=== PATIENT | female | born 1950 | race African-American/Black ===

== ENCOUNTER 2018-03-20 17:06 | Emergency (ER) | payer MEDICARE ==
[~2018-03-20] VITALS: Ht 170.2 cm; Wt 95.0 kg
[~2018-03-20 17:06] MED LIST: ACCOLATE20 MG; ACYCLOVIR400 MG PO; ALLEGRA-D 1212 HOUR PO; ALLEGRA-D 2424 HOUR PO; AMANTADINE100 MG PO; AMLODIPINE BESY10 MG PO; AMOXICILLIN/CL875 MG PO; ANTI-DIARRHE2 M1 PO; ASPIRIN EC81 MG PO; AUGMENTIN500TAB PO; AUGMENTIN875TAB PO; BENICAR40 MG PO; BENZONATATE200 MG PO; CHERATUSSIN PO; CIPROFLOXACN500 MG PO; CLONIDINE0.1 MG PO; CRESTOR20 MG PO; DELSYM30 MG/5 ML PO; DIFLUCAN150 MG PO; DILAUDID2 MG PO; DOXYCYC MONO100 M2 PO; FLEXERIL PO; FLEXERIL10 MG PO; FLORASTOR250 M1 PO; FLUTICASONE50 MCG; HYDROCHLOROT12.5 MG PO; KETOROLAC60 MG/2 ML IM; LIPITOR40 MG PO; LISINOP/HCTZ1 TA2 PO; LISINOPRIL20 MG PO; LORTAB 5 PO; LORTAB 5/3255 MG PO; MEDDOSEPAK PO; MELOXICAM15 MG PO; MELOXICAM7.5 MG PO; METOPROL TAR25 MG PO; METOPROLOL50 M1 PO; METRONIDAZOL250 MG PO; MOBIC15 M1 PO; MOBIC15 MG PO; MOTRIN800 MG PO; MUCINEX600 MG PO; NAPROSYN375 MG PO; NAPROSYN500 MG PO; NEXIUM40 M1 PO; NEXIUM40 MG PO; NORCO1 TA1 PO; NYSTATIN100000 M3 TOP; OMEGA 31000 MG PO; PERCOCET 5/325M1 TAB PO; PRAVACHOL40 MG PO; PRAVASTATIN40 MG PO; PREDNISONE20 MG PO; PROAIR HFA IN; QVAR80 MCG IN; ROBITUSSIN AC10 ML PO; SYMBICORT 80-4.5MCG; SYMBICORT 80-4.5MCG IN; SYMBICORT1 AE1 IN; TESSALON PER100 MG PO; TESSALON200 MG PO; TRAMADOL HCL50 MG PO; ULTRAM ER100 MG PO; VICODIN1 TAB PO; ZITHROMAX250 MG PO; ZITHROMAX500 MG PO; ZOFRAN4 MG/TAB PO; ZPAK PO; ZYRTEC10 MG PO; [UNRECOGNIZED DRUG - OTHER] PO; [UNRECOGNIZED DRUG - OTHER] VA
[2018-03-20] MEDS ORDERED: KEFLEX500 M1 PO (18:05)
[2018-03-20 18:08] VITALS: BP 143/81
== END 2018-03-20 18:16 | disposition home or self-care (01) ==
LOC: ED 17:06
PROC: 0HQDXZZ Repair Right Lower Arm Skin, External Approach (ICD-10-PCS; principal; 2018-03-20)
DX: S51.811A Laceration without foreign body of right forearm, initial encounter (principal); E11.9 Type 2 diabetes mellitus without complications; I10 Essential (primary) hypertension; K21.9 Gastro-esophageal reflux disease without esophagitis; E78.00 Pure hypercholesterolemia, unspecified; W22.8XXA Striking against or struck by other objects, initial encounter

== ENCOUNTER 2018-03-25 10:57 | Emergency (ER) | payer MEDICARE ==
[~2018-03-25] VITALS: Ht 170.2 cm; Wt 94.5 kg
[~2018-03-25 10:57] MED LIST changes: +KEFLEX500 M1 PO
[2018-03-25] MEDS ORDERED: DIFLUCAN100 MG PO (11:20)
[2018-03-25 11:25] VITALS: BP 151/69
== END 2018-03-25 11:30 | disposition home or self-care (01) ==
LOC: ED 10:57
DX: S51.801D Unspecified open wound of right forearm, subsequent encounter (principal); B37.3 Candidiasis of vulva and vagina; E11.9 Type 2 diabetes mellitus without complications; I10 Essential (primary) hypertension; J44.9 Chronic obstructive pulmonary disease, unspecified; K21.9 Gastro-esophageal reflux disease without esophagitis; X58.XXXD Exposure to other specified factors, subsequent encounter

== ENCOUNTER 2018-07-14 02:08 | Emergency (ER) | payer MEDICARE ==
[~2018-07-14] VITALS: Ht 170.2 cm; Wt 95.4 kg
[~2018-07-14 02:08] MED LIST changes: +DIFLUCAN100 MG PO
[2018-07-14 03:06] LABS: HEMATOCRIT 38.5 % (37.0-47.0); HEMOGLOBIN 11.6 g/dl (12.0-16.0); IMMATURE GRANULOCYTES 0.3 % (0.0-5.0); MEAN CELL VOLUME 81.2 fL CALC (80.0-100.0); MEAN CORPUSCULAR HGB 24.5 pG CALC (26.0-32.0); MEAN CORPUSCULAR HGB CONC 30.1 g/L CALC (32.0-36.0); NEUT# 4.41 thou/uL (2.00-7.15); RED BLOOD COUNT 4.74 mill/uL (4.20-5.60); RED CELL DISTRI WIDTH 16.1 % (11.5-15.5)
[2018-07-14 03:18] LABS: CREATININE 1.3 mg/dL (0.5-1.0); POTASSIUM 3.9 mmol/l (3.5-5.1)
[2018-07-14] MEDS ORDERED: PERCOCET 10/31 COMBO PO (03:32)
[2018-07-14] MEDS ORDERED: VOLTAREN75 MG PO (03:32)
[2018-07-14 03:44] VITALS: BP 141/52
== END 2018-07-14 03:44 | disposition home or self-care (01) ==
LOC: ED 02:08
PROVIDERS: Family Medicine
DX: M25.562 Pain in left knee (principal); I10 Essential (primary) hypertension; E11.9 Type 2 diabetes mellitus without complications; J44.9 Chronic obstructive pulmonary disease, unspecified; K21.9 Gastro-esophageal reflux disease without esophagitis; E78.00 Pure hypercholesterolemia, unspecified; Z96.652 Presence of left artificial knee joint

== ENCOUNTER 2018-09-17 08:46 | Day surgery (SDC) | payer MEDICARE ==
[~2018-09-17 08:46] MED LIST changes: +ATENOLOL25 MG PO; +HYDRALAZINE25 MG PO; +LOSARTAN/HCT1 TA1 PO; +PERCOCET 10/31 COMBO PO; +VOLTAREN75 MG PO
[2018-09-17] MEDS ORDERED: DILAUDID4 MG PO (12:27)
[2018-09-17 13:06] VITALS: BP 177/68
[2018-09-17] MEDS ORDERED: OXYCODONE10 M1 PO (13:10)
== END 2018-09-17 14:12 | disposition home or self-care (01) ==
LOC: ORM 08:46
PROVIDERS: ATTEND Orthopaedic Surgery
PROC: 0SNDXZZ Release Left Knee Joint, External Approach (ICD-10-PCS; principal; 2018-09-17)
DX: T84.89XA Other specified complication of internal orthopedic prosthetic devices, implants and grafts, initial encounter (principal); M25.662 Stiffness of left knee, not elsewhere classified; I10 Essential (primary) hypertension; Y83.1 Surgical operation with implant of artificial internal device as the cause of abnormal reaction of the patient, or of later complication, without mention of misadventure at the time of the procedure; Z96.652 Presence of left artificial knee joint; Z91.19 Patient's noncompliance with other medical treatment and regimen

== ENCOUNTER 2018-12-21 07:36 | Emergency (ER) | payer MEDICARE ==
[~2018-12-21] VITALS: Ht 170.2 cm; Wt 97.7 kg
[~2018-12-21 07:36] MED LIST changes: +DILAUDID4 MG PO; +OXYCODONE10 M1 PO
[2018-12-21] MEDS ORDERED: HYZAAR1 TA1 PO (08:11)
[2018-12-21] MEDS ORDERED: VOLTAREN1%GEL TOP (09:05)
[2018-12-21] MEDS ORDERED: CYCLOBENZAPR5 MG PO (09:05)
[2018-12-21 09:32] VITALS: BP 198/88
== END 2018-12-21 09:32 | disposition home or self-care (01) ==
LOC: ED 07:36
DX: S39.012A Strain of muscle, fascia and tendon of lower back, initial encounter (principal); E11.9 Type 2 diabetes mellitus without complications; I10 Essential (primary) hypertension; J44.9 Chronic obstructive pulmonary disease, unspecified; X58.XXXA Exposure to other specified factors, initial encounter

== ENCOUNTER 2019-01-21 04:30 | Observation (INO) | payer MEDICARE ==
[~2019-01-21] VITALS: Ht 170.2 cm; Wt 102.1 kg
[~2019-01-21 04:30] MED LIST changes: +CYCLOBENZAPR5 MG PO; +HYZAAR1 TA1 PO; +VOLTAREN1%GEL TOP
[2019-01-21] MEDS ORDERED: TIZANIDINE HCL4 M1 PO (04:55)
[2019-01-21] MEDS ORDERED: SYMBICORT1 AE1 IN (04:57)
[2019-01-21] MEDS ORDERED: LOSARTAN/HCT1 TA2 PO (04:57)
[2019-01-21 06:39] LABS: HEMATOCRIT 38.5 % (37.0-47.0); HEMOGLOBIN 11.8 g/dl (12.0-16.0); IMMATURE GRANULOCYTES 0.5 % (0.0-5.0); MEAN CELL VOLUME 80.5 fL CALC (80.0-100.0); MEAN CORPUSCULAR HGB 24.7 pG CALC (26.0-32.0); MEAN CORPUSCULAR HGB CONC 30.6 g/L CALC (32.0-36.0); NEUT# 5.4 thou/uL (2.00-7.15); RED BLOOD COUNT 4.78 mill/uL (4.20-5.60); RED CELL DISTRI WIDTH 15.9 % (11.5-15.5)
[2019-01-21 06:50] LABS: ALBUMIN 4.2 g/dL (3.2-5.0); ALKALINE PHOSPHATASE 83 u/l (38-126); AMYLASE 67 u/l (30-110); ANION GAP 13 (6-22 (CALC)); BILIRUBIN, TOTAL 0.3 mg/dL (0.0-1.4); BUN 23 mg/dL (8-23); BUN/CREATININE RATIO 25 (12-20 (CALC)); CARBON DIOXIDE 29 mmol/l (22-30); CHLORIDE 106 mmol/l (95-108); CREATININE 0.9 mg/dL (0.5-1.0); GFR > 60 ML/MIN (>=60 (CALC)); GFR FOR AFR.AMER. > 60 ML/MIN (>=60 (CALC)); LIPASE 32 u/l (23-300); POTASSIUM 3.7 mmol/l (3.5-5.1); SGOT/AST 29 u/l (9-36); SODIUM 143 mmol/l (137-146); TOTAL PROTEIN 7.6 g/dL (6.3-8.2)
[2019-01-21 07:02] LABS: MYOGLOBIN 71 ng/mL (0 - 62)
[2019-01-21 07:47] LABS: URINE BILIRUBIN - DIPSTICK NEGATIVE (NEGATIVE); URINE BLOOD DIPSTICK NEGATIVE (NEGATIVE); URINE COLOR YELLOW; URINE GLUCOSE - DIPSTICK NEGATIVE (NEGATIVE); URINE KETONE NEGATIVE (NEGATIVE); URINE LEUK ESTERASE NEGATIVE (NEGATIVE); URINE NITRITE - DIPSTICK NEGATIVE (Negative); URINE PROTEIN - DIPSTICK NEGATIVE (NEG-TRACE); URINE SPECIFIC GRAVITY 1.025; URINE UROBILINOGEN - DIPSTICK 0.2 E.U./dL (0.2)
[2019-01-21 10:42] VITALS: BP 156/59
[2019-01-21 15:36] VITALS: BP 123/58
[2019-01-21 19:38] VITALS: BP 134/60
[2019-01-22] VITALS: BP 170/81
[2019-01-22 00:50] VITALS: BP 162/80
[2019-01-22 01:40] VITALS: BP 158/76
[2019-01-22 04:00] VITALS: BP 131/70
[2019-01-22 06:04] LABS: CHOLESTEROL HDL RATIO 5.1 (<4.4 (CALC))
[2019-01-22 08:25] VITALS: BP 178/67
[2019-01-22 09:36] VITALS: BP 178/67
[2019-01-22] MEDS ORDERED: MEDDOSEPAK PO (10:32)
[2019-01-22] MEDS ORDERED: ZITHROMAX250 MG PO (10:32)
[2019-01-22] MEDS ORDERED: DIFLUCAN150 MG PO (10:32)
[2019-01-22] MEDS ORDERED: ROBITUSSIN AC10 ML PO (10:36)
== END 2019-01-22 14:23 | disposition home or self-care (01) ==
LOC: ED 04:30 → ED-I 08:19 → ED 08:54 → MS2 08:55
PROVIDERS: Emergency Medicine; ADMIT Internal Medicine; ATTEND Internal Medicine
DX: R07.89 Other chest pain (principal); J20.9 Acute bronchitis, unspecified; J44.0 Chronic obstructive pulmonary disease with (acute) lower respiratory infection; I10 Essential (primary) hypertension; K21.9 Gastro-esophageal reflux disease without esophagitis; E78.00 Pure hypercholesterolemia, unspecified

== ENCOUNTER 2019-05-02 17:53 | Emergency (ER) | payer MEDICARE ==
[~2019-05-02] VITALS: Ht 170.2 cm; Wt 100.0 kg
[~2019-05-02 17:53] MED LIST changes: +LOSARTAN/HCT1 TA2 PO; +TIZANIDINE HCL4 M1 PO
[2019-05-02 19:09] LABS: HEMATOCRIT 37.7 % (37.0-47.0); HEMOGLOBIN 11.4 g/dl (12.0-16.0); IMMATURE GRANULOCYTES 0.3 % (0.0-5.0); MEAN CORPUSCULAR HGB 24.8 pG CALC (26.0-32.0); MEAN CORPUSCULAR HGB CONC 30.2 g/L CALC (32.0-36.0); NEUT# 4.55 thou/uL (2.00-7.15); RED BLOOD COUNT 4.6 mill/uL (4.20-5.60)
[2019-05-02 19:20] LABS: ALBUMIN 4.2 g/dL (3.2-5.0); BILIRUBIN, TOTAL 0.2 mg/dL (0.0-1.4); CREATININE 1.1 mg/dL (0.5-1.0); POTASSIUM 3.7 mmol/l (3.5-5.1); TOTAL PROTEIN 7.5 g/dL (6.3-8.2)
[2019-05-02 21:06] LABS: URINE BILIRUBIN - DIPSTICK NEGATIVE (NEGATIVE); URINE BLOOD DIPSTICK NEGATIVE (NEGATIVE); URINE COLOR YELLOW; URINE GLUCOSE - DIPSTICK NEGATIVE (NEGATIVE); URINE KETONE NEGATIVE (NEGATIVE); URINE LEUK ESTERASE NEGATIVE (NEGATIVE); URINE NITRITE - DIPSTICK NEGATIVE (Negative); URINE PROTEIN - DIPSTICK NEGATIVE (NEG-TRACE); URINE SPECIFIC GRAVITY 1.025; URINE UROBILINOGEN - DIPSTICK 0.2 E.U./dL (0.2)
[2019-05-02] MEDS ORDERED: PHENERGAN25 MG/TAB PO (21:13)
[2019-05-02] MEDS ORDERED: TORADOL PO (21:13)
[2019-05-02 21:18] VITALS: BP 135/77
== END 2019-05-02 21:29 | disposition home or self-care (01) ==
LOC: ED 17:53
PROVIDERS: Family Medicine
DX: M54.5 Low back pain (principal); A08.4 Viral intestinal infection, unspecified; I10 Essential (primary) hypertension; J44.9 Chronic obstructive pulmonary disease, unspecified; E11.9 Type 2 diabetes mellitus without complications

== ENCOUNTER 2019-05-08 20:52 | Emergency (ER) | payer MEDICARE ==
[~2019-05-08] VITALS: Ht 170.2 cm; Wt 101.3 kg
[~2019-05-08 20:52] MED LIST changes: +PHENERGAN25 MG/TAB PO; +TORADOL PO
[2019-05-08] MEDS ORDERED: FLUOXETINE10 MG PO (21:51)
[2019-05-08] MEDS ORDERED: NEXIUM40 M1 PO (21:52)
[2019-05-08] MEDS ORDERED: FLEXERIL PO (23:10)
[2019-05-08] MEDS ORDERED: ULTRAM50 M1 PO (23:10)
[2019-05-08 23:19] VITALS: BP 155/72
== END 2019-05-08 23:19 | disposition home or self-care (01) ==
LOC: ED 20:52
DX: M54.5 Low back pain (principal); G89.29 Other chronic pain

== ENCOUNTER 2019-07-03 | Emergency (ER) | payer MEDICARE ==
[~2019-07-03] MED LIST changes: +FLUOXETINE10 MG PO; +ULTRAM50 M1 PO
[2019-07-03] MEDS ORDERED: ACYCLOVIR200 MG PO (03:15)
[2019-07-03] MEDS ORDERED: DOXYCYC MONO100 M2 PO (03:17)
[2019-07-03] MEDS ORDERED: TESSALON PER100 MG PO (03:17)
[2019-07-15] MEDS ORDERED: PREDNISONE20 MG PO (09:09)
== END 2019-07-03 03:42 | disposition home or self-care (01) ==
DX: J06.9 Acute upper respiratory infection, unspecified (principal); I10 Essential (primary) hypertension

== ENCOUNTER 2019-11-12 21:52 | Observation (INO) | payer MEDICARE, MEDICAID ==
[~2019-11-12] VITALS: Ht 170.2 cm; Wt 107.1 kg
[~2019-11-12 21:52] MED LIST changes: +ACYCLOVIR200 MG PO
--- NOTE | 2019-11-12 21:55 | NUR ---
PATIENT TO ROOM 9 FOR BEDSIDE TRIAGE VIA WHEELCHAIR. ACCOMPANIED BY SPOUSE. AWAITING MD BEARD.
[2019-11-12] MEDS ORDERED: TRELEGY ELLIPTA1 AER IN (22:29)
--- NOTE | 2019-11-12 22:55 | NUR ---
IV STARTED/LABS DRAWN.
[2019-11-12 23:03] LABS: HEMATOCRIT 40.3 % (37.0-47.0); HEMOGLOBIN 12.6 g/dl (12.0-16.0); IMMATURE GRANULOCYTES 0.6 % (0.0-5.0); MEAN CELL VOLUME 79.6 fL CALC (80.0-100.0); MEAN CORPUSCULAR HGB 24.9 pG CALC (26.0-32.0); MEAN CORPUSCULAR HGB CONC 31.3 g/dL CAL (32.0-36.0); NEUT# 9.68 thou/uL (2.00-7.15); RED BLOOD COUNT 5.06 mill/uL (4.20-5.60); RED CELL DISTRI WIDTH 15.6 % (11.5-15.5)
[2019-11-12 23:21] LABS: ALBUMIN 4.4 g/dL (3.2-5.0); ALKALINE PHOSPHATASE 104 u/l (38-126); BUN 32 mg/dL (8-23); BUN/CREATININE RATIO 33 (12-20 (CALC)); CHLORIDE 105 mmol/l (95-108); GFR 55 ML/MIN (>=60 (CALC)); GFR FOR AFR.AMER. > 60 ML/MIN (>=60 (CALC)); POTASSIUM 3.4 mmol/l (3.5-5.1); SGOT/AST 27 u/l (9-36); SODIUM 138 mmol/l (137-146)
[2019-11-12 23:29] LABS: MYOGLOBIN 39 ng/mL (0 - 62)
[2019-11-12 23:30] LABS: ANION GAP 15 (6-22 (CALC)); BILIRUBIN, TOTAL 0.2 mg/dL (0.0-1.4); CARBON DIOXIDE 21 mmol/l (22-30)
[2019-11-12 23:39] LABS: ACT PARTIAL THROMBO TIME 24.2 SECONDS (20.0-32.5)
--- NOTE | 2019-11-13 00:16 | NUR ---
PT RESTING. FEELS BETTER.
--- NOTE | 2019-11-13 00:54 | NUR ---
TO CT VIA W/C.
--- NOTE | 2019-11-13 01:19 | NUR ---
RETURNED FROM CT VIA W/C. ARLYN.
--- NOTE | 2019-11-13 01:25 | NUR ---
UP TO BR TO VOID.
--- NOTE | 2019-11-13 02:12 | NUR ---
CT RESULTED. TO BEDSIDE.
--- NOTE | 2019-11-13 02:33 | NUR ---
REPORT CALLED TO [facility]/ICU (OVERFLOW PT FROM MED-SURG) PT STATES SHE FEELS BETTER BUT STILL FEELS LIKE HEART IS RACING. C.M. NSR. RATE 82
--- NOTE | 2019-11-13 02:40 | NUR ---
TO ICU (MED-SURG OVERFLOW) VIA W/C. SPOUSE HOME. SENT PURSE WITH HIM BUT KEPT WALLET/PHONE/FILTER PULP WASHER/CLOTHERS. ARLYN.
[2019-11-13 02:45] VITALS: BP 140/67
--- NOTE | 2019-11-13 02:45 | NUR ---
RECEIVED [facility] ER VIA INTO ICU 7. PATIENT IS M/S OVERFLOW. PATIENT AMBULATED FROM WC TO BED WITH STABLE STANCE AND GAIT. PLACED ON [employer] CONSULTANT SHOWING SR. RESP NON-LABORED. LUNGS CLEAR. TRACE EDEMA OF BLE. SALINE LOCK INTACT IN LFA, SITE BENIGN. DENIES CHEAT PAINAT THIS TIME. C/O MILD BACK PAIN, STATES SHE SEES A PAIN MANAGEMENT DR IN [place] AND HAD AN EPIDURAL YESTERDAY FOR HER CHRONIC BACK PAIN. ORIENTED TO SURROUNDINGS. DISCUSSED PLAN OF CARE. DENIES NEEDS AT THIS TIME. CALL ARIAS IN REACH.
[2019-11-13 06:00] VITALS: BP 163/69
--- NOTE | 2019-11-13 06:00 | NUR ---
RESTING WITHOUT COMPLAINTS. VSS.
--- NOTE | 2019-11-13 08:00 | NUR ---
PT SEEN AWAKE, ALERT, ORIENTED X 3, PLEASANT. LUNGS CLEAR, RA. PT IS AMBULATORY IN ROOM, UP TO BSC NEEDED. PT STATES THAT SHE FEELS HER HEART BEATING HARDER THAN USUAL, HEARS PULSES IN HER EARS. MONITOR REFLECTS NSR. HEART MURMUR HEARD. PT UPDATED ON TROPONIN RESULTS AND FURTHER DRAWS.
--- NOTE | 2019-11-13 11:39 | NUR ---
PT UPDATED ON TROPONIN RESULT, PLEASED THAT IT IS LOWER. NO COMPLAINT OF CHEST PAIN, ALTHOUGH PT DOES STATE THAT SHE FEELS THE STRONG BEAT OF HER HEART. PT SEEN BY DR GONZALEZ THIS MORNING, TO MONITOR.
--- NOTE | 2019-11-13 16:24 | NUR ---
PT UPDATED ON TROPONIN LEVEL, STILL NOT IN POSITIVE RANGE THANKFULLY. PT IS INDEPENDENT IN GOING BACK AND FORTH TO BSC, DOES NOT CALL OFTEN. PT ENJOYS WORD PUZZLE AT BEDSIDE.
[2019-11-13 19:00] VITALS: BP 156/53
--- NOTE | 2019-11-13 19:15 | NUR ---
PATIENT ALERT AND ORIENTED X4. ON RA, NO SOB NOTED. REPORTS SHE IS "FEELING BETTER," REPORTS WHEN SHE INITIALLY CAME IN SHE WOULD FEEL LIKE HER "HEART RACING" AND "DRUMMING" IN HER EARS FROM HER HEART BEATING. NURSING ASSESSMENT PERFORMED. LFA IV INTACT, 1/2 NS INFUSING AT 20 ML/HR. REQUEST TO WASH UP TONIGHT. ABLE TO GET UP TO BSC WITHOUT DIFFICULTY. SR ON TELEMTRY, SATS 95% ON RA. BP 150'S SYSTOLIC. SELF REPOSITIONS. REPORTS SHE HAS CHRONIC PAIN ON "RIGHT NECK, R-SHOULDER, BACK, BOTH KNEES." WILL FOLLOW UP, PATIENT DOES NOT KNOW WHAT MEDIACTION SHE TAKES FOR PAIN.
--- NOTE | 2019-11-13 20:00 | NUR ---
PATIENT UP TO BSC AND WAS ABLE TO WASH HERSELF WITH MINIMAL ASSIST, BED PAD CHANGED, PAD AND DISPOSABLE NETTED BRIEF PROVIDED. REFUSED TO WASH HER TEETH, REPORTS SHE WILL WASH THEM IN THE AM. PT NOW LAYS SAFELY IN BED AND WORKS ON HER CROSSWORD PUZZLE. PT WAS ABLE TO CALL HER FAMILY TO GIVE HER THE NAME OF THE PAIN MED AND DOSAGE. WILL CALL CORE FINISHER DOCTOR.
--- NOTE | 2019-11-13 20:50 | NUR ---
CALLED AND SPOKE TO DR PANTOJA REGARDING PATIENT REQUESTS FOR HER PAIN MEDIACTION, PT TAKES LORTAB 7.5/325 MG AND SHE ALSO REPORTS SHE TAKES BENADRYL WITH IT SO THE PAIN MED WILL NOT GIVE HER AN UPSET STOMACH OR RASH. NEW ORDERS RECEIVED.
[2019-11-13 21:00] VITALS: BP 137/50
--- NOTE | 2019-11-13 22:15 | NUR ---
PATIENT ABLE TO TOLERATE HER PAIN MED WITH BENADRYL. PT COMPLAINS OF CHRONIC PAIN ON HER R-NECK AND SHOULDER, SHE REPORTS SHE HAS "3 PINCHED NERVES" ON HER RIGHT SIDE NECK, C/O KNEE PAIN WELL. NOW RESTS SUPINE. NO OTHER COMPLAINTS OR NEEDS.
[2019-11-13 23:00] VITALS: BP 160/72
[2019-11-14] VITALS (7 sets, daily range): BP systolic 126–166; BP diastolic 53–63
--- NOTE | 2019-11-14 00:10 | NUR ---
PT ASSISTED WITH REPOSITOINING DUE TO CAUGHT UP IN IV TUBING AND MONITOR WIRES. NO ACUTE DISTRESS SHOWN. CALL LIGHT WITHIN REACH
--- NOTE | 2019-11-14 00:20 | NUR ---
PT REPOSITONED, SUCTIONED. WHEN REPOSITIONING, PT'S HEART RATE ELEVATED TO 100 BPM. AFBERILE, SATS 100%, VENT SETTINGS UNCHANGED. BP 130'S SYTOLIC.
--- NOTE | 2019-11-14 01:13 | NUR ---
PT ASSITED WITH REPOSITIONING AFTER USING BEDSIDE COMMODE. NOW RESTS IN BED. NO COMPLAINTS OR OTHER NEEDS AT THIS TIME.
--- NOTE | 2019-11-14 06:04 | NUR ---
PT RESTS WITH EYES CLOSED. NO ACUTE DISTRESS SHOWN. AWAKENS EASILY WHEN SPOKEN TO. OFFERS NO NEEDS OR COMPLAINTS AT THIS TIME. CALL LIGHT WITHIN REACH.
--- NOTE | 2019-11-14 08:00 | NUR ---
PT ASSESSED, RESTING IN BED WATCHING TV. DENIES PAIN OR DISCOMFORT AT THIS TIME. PT ALERT AND ORIENTED X4. ALL VSS AT THIS TIME. CALL LIGHT WITHIN REACH, WILL CONTINUE TO MONITOR.
--- NOTE | 2019-11-14 09:10 | NUR ---
DR GONZALEZ AT BEDSIDE, PT DISCHARGE ORDERED.
[2019-11-14] MEDS ORDERED: NITROSTAT0.4 MG SL (09:14)
--- NOTE | 2019-11-14 10:40 | NUR ---
PT EDUCATED REGARDING NITRO USE AND HYPERTENSION. DISCHARGE DOCUMENTS, PRESCRIPTION INFORMATION AND DISCHARGE PLAN FOR PT DISCUSSED. PT IS BEING PICKED UP BY .
--- NOTE | 2019-11-14 11:00 | NUR ---
PT PERIPHERAL IV REMOVED. SITE INTACT, NO BLEEDING OR REDNESS PRESENT
--- NOTE | 2019-11-14 12:00 | NUR ---
NITRO SUBLINGUAL TAB Q5 MIN X 3 DOSES FOR ANGINA. PT IN BED EATING LUNCH, SAYS THERE IS A TOUCH OF CHEST PAIN. WILL CONTINUE TO MONITOR
--- NOTE | 2019-11-14 12:10 | NUR ---
PT STATES ANGINA GONE AFTER SECOND NITRO TAB. REPEAT BLOOD PRESSURE 138/61.
--- NOTE | 2019-11-14 12:15 | NUR ---
DR GONZALEZ NOTIFIED OF NITRO DOSE EFFICACY AFTER SECOND TAB. ORDERED TO KEEP HER FOR FEW HOURS AND TROPONIN LAB DRAW ORDERED.
--- NOTE | 2019-11-14 14:00 | NUR ---
DR GONZALEZ NOTIFIED OF TROP LAB RESULT OF 0.028
--- NOTE | 2019-11-14 14:30 | NUR ---
PT CLEARED TO GO BY DR GONZALEZ.
--- NOTE | 2019-11-14 15:20 | NUR ---
Discharge instructions given. Patient verbalizes understanding of same. Discharged in stable condition via Wheelchair to Home with family. PT PACKED ALL BELONGINGS. All belongings sent with pt.
== END 2019-11-14 15:20 | disposition home health service (06) ==
LOC: ED 21:52 → ED-I 11-13 01:03 → ED 11-13 02:18 → ICU 11-13 02:19
PROVIDERS: Emergency Medicine; ADMIT Internal Medicine; ATTEND Internal Medicine
DX: R07.9 Chest pain, unspecified (principal); I10 Essential (primary) hypertension; J44.9 Chronic obstructive pulmonary disease, unspecified; R01.1 Cardiac murmur, unspecified; E78.5 Hyperlipidemia, unspecified; R73.03 Prediabetes; Z20.828 Contact with and (suspected) exposure to other viral communicable diseases
CPT/HCPCS: Q9967

== ENCOUNTER 2020-02-27 17:30 | Emergency (ER) | payer MEDICARE ==
[~2020-02-27] VITALS: Ht 170.2 cm; Wt 105.0 kg
[~2020-02-27 17:30] MED LIST changes: +NITROSTAT0.4 MG SL; +TRELEGY ELLIPTA1 AER IN
[2020-02-27] MEDS ORDERED: CYCLOBENZAPR5 MG PO (18:53)
[2020-02-27 19:20] VITALS: BP 182/90
== END 2020-02-27 19:43 | disposition home or self-care (01) ==
LOC: ED 17:30
DX: M43.6 Torticollis (principal); I10 Essential (primary) hypertension; R73.03 Prediabetes; J44.9 Chronic obstructive pulmonary disease, unspecified

== ENCOUNTER 2021-03-21 23:19 | Observation (INO) | payer MEDICARE ==
[~2021-03-21] VITALS: Ht 170.2 cm; Wt 100.0 kg
[~2021-03-21 23:19] MED LIST changes: +HYDRALAZINE HYD25 MG PO; -HYDRALAZINE25 MG PO; +PROTONIX40 M2 PO
[2021-03-21] MEDS ORDERED: ACYCLOVIR200 MG PO (23:58)
[2021-03-21] MEDS ORDERED: GABAPENTIN300 M2 PO (23:59)
[2021-03-22] MEDS ORDERED: SYMBICORT1 AE1 IN (00:02)
[2021-03-22 00:22] LABS: HEMATOCRIT 36.6 % (37.0-47.0); HEMOGLOBIN 11.2 g/dl (12.0-16.0); IMMATURE GRANULOCYTES 0.5 % (0.0-5.0); MEAN CELL VOLUME 80.6 fL CALC (80.0-100.0); MEAN CORPUSCULAR HGB 24.7 pG CALC (26.0-32.0); MEAN CORPUSCULAR HGB CONC 30.6 g/dL CAL (32.0-36.0); NEUT# 6.49 thou/uL (2.00-7.15); RED BLOOD COUNT 4.54 mill/uL (4.20-5.60); RED CELL DISTRI WIDTH 16.7 % (11.5-15.5)
[2021-03-22 00:31] LABS: ALBUMIN 4.1 g/dL (3.2-5.0); AMYLASE 65 u/l (30-110); ANION GAP 15 (6-22 (CALC)); BUN 33 mg/dL (8-23); BUN/CREATININE RATIO 25 (12-20 (CALC)); CARBON DIOXIDE 21 mmol/l (22-30); CHLORIDE 109 mmol/l (95-108); CREATININE 1.3 mg/dL (0.5-1.0); GFR 40 ML/MIN (>=60 (CALC)); GFR FOR AFR.AMER. 49 ML/MIN (>=60 (CALC)); LIPASE 89 u/l (23-300); POTASSIUM 3.3 mmol/l (3.5-5.1); SGOT/AST 29 u/l (9-36); SODIUM 142 mmol/l (137-146); TOTAL PROTEIN 7.4 g/dL (6.3-8.2)
[2021-03-22 00:32] LABS: ALKALINE PHOSPHATASE 122 u/l (38-126); BILIRUBIN, TOTAL 0.3 mg/dL (0.0-1.4)
[2021-03-22 00:43] LABS: MYOGLOBIN 36 ng/mL (0 - 62)
[2021-03-22 00:55] LABS: D-DIMER 2.13 mg/L (0.19-0.60)
[2021-03-22 01:06] LABS: ACT PARTIAL THROMBO TIME 23.2 SECONDS (20.0-32.5); INTERNATIONAL NORMALIZED RATIO 0.9 RATIO (0.7-1.3); PROTHROMBIN TIME 9.7 SECONDS (9.0-12.5)
[2021-03-22 07:58] VITALS: BP 123/56
[2021-03-22] MEDS ORDERED: FUROSEMIDE20 MG PO (08:54)
[2021-03-22] MEDS ORDERED: PROTONIX40 M2 PO (08:57)
[2021-03-22] MEDS ORDERED: OXYCODONE5 M1 PO (08:57)
[2021-03-22] MEDS ORDERED: TIZANIDINE2 MG PO (08:58)
[2021-03-22 11:06] VITALS: BP 118/37
[2021-03-22 15:33] VITALS: BP 132/61
[2021-03-22 19:00] VITALS: BP 140/62
[2021-03-23] VITALS: BP 131/61
[2021-03-23 04:00] VITALS: BP 167/69
[2021-03-23 05:40] LABS: CHOLESTEROL HDL RATIO 4.8 (<4.4 (CALC)); CREATININE 1.1 mg/dL (0.5-1.0)
[2021-03-23 05:41] LABS: POTASSIUM 4.3 mmol/l (3.5-5.1)
[2021-03-23 05:56] LABS: HEMATOCRIT 34.3 % (37.0-47.0); HEMOGLOBIN 10.7 g/dl (12.0-16.0); MEAN CELL VOLUME 78.5 fL CALC (80.0-100.0); MEAN CORPUSCULAR HGB 24.5 pG CALC (26.0-32.0); MEAN CORPUSCULAR HGB CONC 31.2 g/dL CAL (32.0-36.0); RED BLOOD COUNT 4.37 mill/uL (4.20-5.60); RED CELL DISTRI WIDTH 16.8 % (11.5-15.5)
[2021-03-23 08:00] VITALS: BP 142/70
[2021-03-23 10:30] VITALS: BP 187/78
[2021-03-23] MEDS ORDERED: METFORMIN500 M2 PO (10:37)
[2021-03-23] MEDS ORDERED: FLEXERIL5 M1 PO (10:37)
[2021-03-23] MEDS ORDERED: LIDOCAINE PAIN RE4 % TD (10:38)
[2021-03-23 12:36] VITALS: BP 140/57
== END 2021-03-23 13:02 | disposition home or self-care (01) ==
LOC: ED 23:19 → ED-I 23:55 → ED 03-22 02:17 → MS2 03-22 02:18
PROVIDERS: Family Medicine; Nurse Practitioner; ADMIT Internal Medicine; ATTEND Internal Medicine
DX: R07.89 Other chest pain (principal); M25.512 Pain in left shoulder; I12.9 Hypertensive chronic kidney disease with stage 1 through stage 4 chronic kidney disease, or unspecified chronic kidney disease; E11.22 Type 2 diabetes mellitus with diabetic chronic kidney disease; N18.9 Chronic kidney disease, unspecified; E87.6 Hypokalemia; J44.9 Chronic obstructive pulmonary disease, unspecified; E78.00 Pure hypercholesterolemia, unspecified; M19.90 Unspecified osteoarthritis, unspecified site; K21.9 Gastro-esophageal reflux disease without esophagitis; Z20.822 Contact with and (suspected) exposure to COVID-19
CPT/HCPCS: A9540; J1650

== ENCOUNTER 2021-04-19 06:19 | Emergency (ER) | payer MEDICARE ==
[~2021-04-19] VITALS: Ht 170.2 cm; Wt 100.0 kg
[~2021-04-19 06:19] MED LIST changes: +FLEXERIL5 M1 PO; +FUROSEMIDE20 MG PO; +GABAPENTIN300 M2 PO; +LIDOCAINE PAIN RE4 % TD; +METFORMIN500 M2 PO; +OXYCODONE5 M1 PO; +TIZANIDINE2 MG PO
[2021-04-19] MEDS ORDERED: ADULT ASPIRIN R81 MG PO (06:44)
[2021-04-19 07:08] LABS: HEMATOCRIT 38.3 % (37.0-47.0); HEMOGLOBIN 11.9 g/dl (12.0-16.0); IMMATURE GRANULOCYTES 0.1 % (0.0-5.0); MEAN CELL VOLUME 79.6 fL CALC (80.0-100.0); MEAN CORPUSCULAR HGB 24.7 pG CALC (26.0-32.0); MEAN CORPUSCULAR HGB CONC 31.1 g/dL CAL (32.0-36.0); NEUT# 5.91 thou/uL (2.00-7.15); RED BLOOD COUNT 4.81 mill/uL (4.20-5.60); RED CELL DISTRI WIDTH 15.9 % (11.5-15.5)
[2021-04-19 07:22] LABS: ALBUMIN 4.3 g/dL (3.2-5.0); BILIRUBIN, TOTAL 0.4 mg/dL (0.0-1.4); CREATININE 1.2 mg/dL (0.5-1.0); TOTAL PROTEIN 8.3 g/dL (6.3-8.2)
[2021-04-19 07:27] LABS: POTASSIUM 3.4 mmol/l (3.5-5.1)
[2021-04-19 10:10] VITALS: BP 182/79
[2021-04-19] MEDS ORDERED: INDOMETHACIN50 MG PO (10:25)
[2021-04-19] MEDS ORDERED: TRAMADOL HYDROC50 M1 PO (10:26)
== END 2021-04-19 10:42 | disposition home or self-care (01) ==
LOC: ED 06:19
PROVIDERS: Family Medicine
DX: M10.031 Idiopathic gout, right wrist (principal); I10 Essential (primary) hypertension; E11.9 Type 2 diabetes mellitus without complications; K21.9 Gastro-esophageal reflux disease without esophagitis; E78.00 Pure hypercholesterolemia, unspecified; J44.9 Chronic obstructive pulmonary disease, unspecified; Z79.84 Long term (current) use of oral hypoglycemic drugs

== ENCOUNTER 2021-07-07 07:48 | Day surgery (SDC) | payer MEDICARE ==
[~2021-07-07] VITALS: Ht 170.2 cm; Wt 100.7 kg
[~2021-07-07 07:48] MED LIST changes: +ADULT ASPIRIN R81 MG PO; +CARVEDILOL6.25 MG PO; +INDOMETHACIN50 MG PO; +NEBULIZER IN; +TRAMADOL HYDROC50 M1 PO
[2021-07-07] MEDS ORDERED: [UNRECOGNIZED DRUG - REMARK] (08:12)
[2021-07-07 09:38] VITALS: BP 124/60
== END 2021-07-07 09:53 | disposition home or self-care (01) ==
LOC: ENDO 07:48
PROVIDERS: ATTEND Surgery
PROC: 0DJD8ZZ Inspection of Lower Intestinal Tract, Via Natural or Artificial Opening Endoscopic (ICD-10-PCS; principal; 2021-07-07)
DX: Z12.11 Encounter for screening for malignant neoplasm of colon (principal); K57.30 Diverticulosis of large intestine without perforation or abscess without bleeding; K64.4 Residual hemorrhoidal skin tags; K64.8 Other hemorrhoids

== ENCOUNTER 2021-10-20 07:58 | Day surgery (SDC) | payer MEDICARE ==
[~2021-10-20] VITALS: Ht 170.2 cm; Wt 104.3 kg
[~2021-10-20 07:58] MED LIST changes: +ALBUTEROL SUL0.083 % IN; +CVS FLUTICASON50 MCG; +NORVASC10 M1 PO; +[UNRECOGNIZED DRUG - REMARK]
[2021-10-20] MEDS ORDERED: CARVEDILOL3.125 MG PO (08:36)
[2021-10-20] MEDS ORDERED: OXYCODONE5 M1 PO (08:36)
[2021-10-20 11:09] VITALS: BP 200/104
== END 2021-10-20 09:45 | disposition home or self-care (01) ==
LOC: ORM 07:58
PROVIDERS: ATTEND Physical Medicine & Rehabilitation
DX: M70.61 Trochanteric bursitis, right hip (principal); M70.62 Trochanteric bursitis, left hip; G89.4 Chronic pain syndrome; M96.1 Postlaminectomy syndrome, not elsewhere classified; M79.2 Neuralgia and neuritis, unspecified
CPT/HCPCS: Q9967

== ENCOUNTER 2021-12-15 07:07 | Day surgery (SDC) | payer MEDICARE ==
[~2021-12-15] VITALS: Ht 170.2 cm; Wt 102.5 kg
[~2021-12-15 07:07] MED LIST changes: +CARVEDILOL3.125 MG PO
[2021-12-15 08:59] VITALS: BP 175/70
== END 2021-12-15 09:15 | disposition home or self-care (01) ==
LOC: ORM 07:07
PROVIDERS: ATTEND Physical Medicine & Rehabilitation
DX: M46.1 Sacroiliitis, not elsewhere classified (principal); G89.4 Chronic pain syndrome; M79.2 Neuralgia and neuritis, unspecified; M70.62 Trochanteric bursitis, left hip; M70.61 Trochanteric bursitis, right hip
CPT/HCPCS: Q9967

== ENCOUNTER 2022-03-16 07:02 | Day surgery (SDC) | payer MEDICARE ==
[~2022-03-16] VITALS: Ht 170.2 cm; Wt 101.2 kg
[2022-03-16 10:18] VITALS: BP 162/81
== END 2022-03-16 10:05 | disposition home or self-care (01) ==
LOC: ORM 07:02
PROVIDERS: ATTEND Physical Medicine & Rehabilitation Pain Medicine
DX: M54.16 Radiculopathy, lumbar region (principal)
CPT/HCPCS: J1100

== ENCOUNTER 2022-03-21 16:51 | Emergency (ER) | payer MEDICARE ==
[~2022-03-21] VITALS: Ht 170.2 cm; Wt 100.0 kg
[2022-03-21 17:53] VITALS: BP 201/76
[2022-03-21 18:01] VITALS: BP 168/68
[2022-03-21 18:30] VITALS: BP 181/79
[2022-03-21] MEDS ORDERED: TRAMADOL HYDROC50 M1 PO (18:39)
[2022-03-21] MEDS ORDERED: CEPHALEXIN500 MG PO (18:39)
[2022-03-21] MEDS ORDERED: COLCHICINE0.6 M2 PO (18:39)
[2022-03-21 18:52] VITALS: BP 181/79
== END 2022-03-21 18:59 | disposition home or self-care (01) ==
LOC: ED 16:51
DX: M79.675 Pain in left toe(s) (principal); I10 Essential (primary) hypertension; E11.9 Type 2 diabetes mellitus without complications; K21.9 Gastro-esophageal reflux disease without esophagitis; E78.00 Pure hypercholesterolemia, unspecified; J44.9 Chronic obstructive pulmonary disease, unspecified

== ENCOUNTER 2022-04-26 06:52 | Emergency (ER) | payer MEDICARE ==
[~2022-04-26] VITALS: Ht 170.2 cm; Wt 103.0 kg
[2022-04-26] VITALS (10 sets, daily range): BP systolic 141–213; BP diastolic 63–103
[~2022-04-26 06:52] MED LIST changes: +CEPHALEXIN500 MG PO; +COLCHICINE0.6 M2 PO
[2022-04-26] MEDS ORDERED: PREDNISONE50 MG PO (08:51)
[2022-04-26] MEDS ORDERED: ZPAK PO (08:51)
== END 2022-04-26 09:11 | disposition home or self-care (01) ==
LOC: ED 06:52
DX: J06.9 Acute upper respiratory infection, unspecified (principal); I10 Essential (primary) hypertension; J44.9 Chronic obstructive pulmonary disease, unspecified; K21.9 Gastro-esophageal reflux disease without esophagitis; E78.00 Pure hypercholesterolemia, unspecified; R73.03 Prediabetes; Z20.822 Contact with and (suspected) exposure to COVID-19

== ENCOUNTER 2022-08-08 06:40 | Day surgery (SDC) | payer MEDICARE ==
[~2022-08-08] VITALS: Ht 170.2 cm; Wt 101.2 kg
[~2022-08-08 06:40] MED LIST changes: +BENZONATATE150 MG PO; +PREDNISONE50 MG PO
[2022-08-08 13:45] VITALS: BP 164/75
== END 2022-08-08 09:32 | disposition home or self-care (01) ==
LOC: ORM 06:40
PROVIDERS: ATTEND Internal Medicine Gastroenterology
PROC: 0D738ZZ Dilation of Lower Esophagus, Via Natural or Artificial Opening Endoscopic (ICD-10-PCS; principal; 2022-08-08)
PROC: 0DB38ZX Excision of Lower Esophagus, Via Natural or Artificial Opening Endoscopic, Diagnostic (ICD-10-PCS; 2022-08-08)
PROC: 0DB78ZX Excision of Stomach, Pylorus, Via Natural or Artificial Opening Endoscopic, Diagnostic (ICD-10-PCS; 2022-08-08)
PROC: 0DB28ZX Excision of Middle Esophagus, Via Natural or Artificial Opening Endoscopic, Diagnostic (ICD-10-PCS; 2022-08-08)
DX: K22.2 Esophageal obstruction (principal); K44.9 Diaphragmatic hernia without obstruction or gangrene; K21.00 Gastro-esophageal reflux disease with esophagitis, without bleeding; K29.50 Unspecified chronic gastritis without bleeding; I12.9 Hypertensive chronic kidney disease with stage 1 through stage 4 chronic kidney disease, or unspecified chronic kidney disease; N18.30 Chronic kidney disease, stage 3 unspecified; J44.9 Chronic obstructive pulmonary disease, unspecified; E66.9 Obesity, unspecified; E78.5 Hyperlipidemia, unspecified

== ENCOUNTER 2022-08-16 13:44 | Emergency (ER) | payer MEDICARE ==
[~2022-08-16] VITALS: Ht 170.2 cm; Wt 101.2 kg
[2022-08-16 14:01] VITALS: BP 143/53
[2022-08-16 14:30] VITALS: BP 114/49
[2022-08-16 14:46] LABS: BASO% 0.2 % (0-3); EOS% 0.3 % (0-8); HEMATOCRIT 37.4 % (37.0-47.0); HEMOGLOBIN 11.5 g/dl (12.0-16.0); IMMATURE GRANULOCYTES 0.2 % (0.0-5.0); LYMPH% 11.3 % (15-41); MEAN CELL VOLUME 81.1 fL CALC (80.0-100.0); MEAN CORPUSCULAR HGB 24.9 pG CALC (26.0-32.0); MEAN CORPUSCULAR HGB CONC 30.7 g/dL CAL (32.0-36.0); MONO% 7.7 % (2-13); NEUT# 9.63 thou/uL (2.00-7.15); NEUT% 80.3 % (42-76); RED BLOOD COUNT 4.61 mill/uL (4.20-5.60); RED CELL DISTRI WIDTH 15.8 % (11.5-15.5)
[2022-08-16 14:59] LABS: ALBUMIN 4.2 g/dL (3.2-5.0); BILIRUBIN, TOTAL 0.1 mg/dL (0.02-1.3); C-REACTIVE PROTEIN 1.3 mg/dL (0-0.9); CREATININE 1.2 mg/dL (0.5-1.0); POTASSIUM 3.7 mmol/l (3.5-5.1); TOTAL PROTEIN 7.2 g/dL (6.3-8.2)
[2022-08-16 15:01] VITALS: BP 114/49
[2022-08-16 15:30] VITALS: BP 132/59
[2022-08-16 16:00] VITALS: BP 131/51
[2022-08-16] MEDS ORDERED: COLCHICINE0.6 M2 PO (16:42)
[2022-08-16] MEDS ORDERED: MEDDOSEPAK PO (16:42)
[2022-08-16 17:07] VITALS: BP 131/51
== END 2022-08-16 17:12 | disposition home or self-care (01) ==
LOC: ED 13:44
PROVIDERS: Nurse Practitioner
DX: M10.072 Idiopathic gout, left ankle and foot (principal); I10 Essential (primary) hypertension; J44.9 Chronic obstructive pulmonary disease, unspecified; K21.9 Gastro-esophageal reflux disease without esophagitis; E78.00 Pure hypercholesterolemia, unspecified; R73.03 Prediabetes

== ENCOUNTER 2022-09-27 08:09 | Emergency (ER) | payer MEDICARE ==
[~2022-09-27] VITALS: Ht 170.2 cm; Wt 100.2 kg
[2022-09-27 08:25] VITALS: BP 202/79
[2022-09-27 08:31] VITALS: BP 187/91
[2022-09-27] MEDS ORDERED: PREDNISONE50 MG PO (08:44)
[2022-09-27] MEDS ORDERED: COLCHICINE0.6 M2 PO (08:44)
[2022-09-27 08:46] VITALS: BP 208/87
[2022-09-27 09:01] VITALS: BP 207/94
[2022-09-27 09:15] VITALS: BP 194/82
[2022-09-27 09:19] VITALS: BP 194/82
== END 2022-09-27 09:30 | disposition home or self-care (01) ==
LOC: ED 08:09
DX: M10.072 Idiopathic gout, left ankle and foot (principal); I10 Essential (primary) hypertension; R73.03 Prediabetes; K21.9 Gastro-esophageal reflux disease without esophagitis; E78.00 Pure hypercholesterolemia, unspecified; J44.9 Chronic obstructive pulmonary disease, unspecified

== ENCOUNTER 2022-10-19 07:06 | Day surgery (SDC) | payer MEDICARE ==
[~2022-10-19] VITALS: Ht 170.2 cm; Wt 97.5 kg
[2022-10-19] MEDS ORDERED: COZAAR100 MG PO (07:44)
[2022-10-19 09:38] VITALS: BP 153/74
== END 2022-10-19 10:00 | disposition home or self-care (01) ==
LOC: ORM 07:06
PROVIDERS: ATTEND Physical Medicine & Rehabilitation
DX: G89.4 Chronic pain syndrome (principal); M54.16 Radiculopathy, lumbar region; M96.1 Postlaminectomy syndrome, not elsewhere classified; M70.62 Trochanteric bursitis, left hip; M70.61 Trochanteric bursitis, right hip; M46.1 Sacroiliitis, not elsewhere classified
CPT/HCPCS: J1100; Q9967

== ENCOUNTER 2022-11-25 20:24 | Emergency (ER) | payer MEDICARE ==
[~2022-11-25] VITALS: Ht 170.2 cm; Wt 102.0 kg
[~2022-11-25 20:24] MED LIST changes: +COZAAR100 MG PO
[2022-11-25 21:22] VITALS: BP 243/94
== END 2022-11-25 21:26 | disposition home or self-care (01) ==
LOC: ED 20:24
DX: S90.411A Abrasion, right great toe, initial encounter (principal); S90.414A Abrasion, right lesser toe(s), initial encounter; S90.111A Contusion of right great toe without damage to nail, initial encounter; S90.122A Contusion of left lesser toe(s) without damage to nail, initial encounter; I10 Essential (primary) hypertension; K21.9 Gastro-esophageal reflux disease without esophagitis; E78.00 Pure hypercholesterolemia, unspecified; J44.9 Chronic obstructive pulmonary disease, unspecified; W22.8XXA Striking against or struck by other objects, initial encounter; Y92.511 Restaurant or cafe as the place of occurrence of the external cause

== ENCOUNTER 2022-11-30 14:53 | Emergency (ER) | payer MEDICARE ==
[~2022-11-30] VITALS: Ht 170.2 cm; Wt 120.0 kg
[2022-11-30 16:17] VITALS: BP 193/87
[2022-11-30 16:31] VITALS: BP 192/81
[2022-11-30 17:01] VITALS: BP 201/88
[2022-11-30] MEDS ORDERED: INDOMETHACIN50 MG PO (17:09)
[2022-11-30 17:13] VITALS: BP 208/87
[2022-11-30 17:15] VITALS: BP 207/71
== END 2022-11-30 17:29 | disposition home or self-care (01) ==
LOC: ED 14:53
DX: M10.071 Idiopathic gout, right ankle and foot (principal); I10 Essential (primary) hypertension; J44.9 Chronic obstructive pulmonary disease, unspecified; K21.9 Gastro-esophageal reflux disease without esophagitis; E78.00 Pure hypercholesterolemia, unspecified; R73.03 Prediabetes

== ENCOUNTER 2023-01-08 02:32 | Emergency (ER) | payer MEDICARE ==
[~2023-01-08] VITALS: Ht 170.2 cm; Wt 81.0 kg
[~2023-01-08 02:32] MED LIST changes: +ALLOPURINOL100 MG PO; +APRESOLINE50 MG PO; +RYBELSUS7 MG PO
[2023-01-08] MEDS ORDERED: INDOMETHACIN75 MG PO (03:04)
[2023-01-08 03:15] VITALS: BP 179/88
== END 2023-01-08 03:34 | disposition home or self-care (01) ==
LOC: ED 02:32
DX: M10.031 Idiopathic gout, right wrist (principal); I10 Essential (primary) hypertension; E11.9 Type 2 diabetes mellitus without complications; K21.9 Gastro-esophageal reflux disease without esophagitis; E78.00 Pure hypercholesterolemia, unspecified; J44.9 Chronic obstructive pulmonary disease, unspecified

== ENCOUNTER 2023-01-09 08:27 | Day surgery (SDC) | payer MEDICARE ==
[~2023-01-09] VITALS: Ht 170.2 cm; Wt 99.3 kg
[~2023-01-09 08:27] MED LIST changes: +INDOMETHACIN75 MG PO
[2023-01-09 10:34] VITALS: BP 160/79
== END 2023-01-09 10:25 | disposition home or self-care (01) ==
LOC: ORM 08:27
PROVIDERS: ATTEND Internal Medicine Gastroenterology
PROC: 0DBK8ZX Excision of Ascending Colon, Via Natural or Artificial Opening Endoscopic, Diagnostic (ICD-10-PCS; principal; 2023-01-09)
PROC: 0DBH8ZX Excision of Cecum, Via Natural or Artificial Opening Endoscopic, Diagnostic (ICD-10-PCS; 2023-01-09)
DX: Z12.11 Encounter for screening for malignant neoplasm of colon (principal); D12.2 Benign neoplasm of ascending colon; D12.0 Benign neoplasm of cecum; K57.30 Diverticulosis of large intestine without perforation or abscess without bleeding; K64.8 Other hemorrhoids; I12.9 Hypertensive chronic kidney disease with stage 1 through stage 4 chronic kidney disease, or unspecified chronic kidney disease; N18.30 Chronic kidney disease, stage 3 unspecified; J44.9 Chronic obstructive pulmonary disease, unspecified; K21.9 Gastro-esophageal reflux disease without esophagitis; E78.5 Hyperlipidemia, unspecified; E66.9 Obesity, unspecified; Z86.010 Personal history of colon polyps

== ENCOUNTER 2023-02-03 16:21 | Emergency (ER) | payer MEDICARE ==
[~2023-02-03] VITALS: Ht 170.2 cm; Wt 99.7 kg
[2023-02-03] VITALS (9 sets, daily range): BP systolic 155–200; BP diastolic 67–89
[2023-02-03] MEDS ORDERED: ZYLOPRIM100 MG PO (18:21)
[2023-02-03] MEDS ORDERED: MITIGARE0.6 MG PO (18:51)
== END 2023-02-03 19:22 | disposition home or self-care (01) ==
LOC: ED 16:21
DX: M10.031 Idiopathic gout, right wrist (principal); I10 Essential (primary) hypertension; E78.00 Pure hypercholesterolemia, unspecified; J44.9 Chronic obstructive pulmonary disease, unspecified; R73.03 Prediabetes; K21.9 Gastro-esophageal reflux disease without esophagitis

== ENCOUNTER 2023-07-26 09:03 | Observation (INO) | payer MEDICARE ==
[2023-07-26] VITALS (46 sets, daily range): BP systolic 77–177; BP diastolic 52–99
[~2023-07-26] VITALS: Ht 170.2 cm; Wt 98.0 kg
[~2023-07-26 09:03] MED LIST changes: +GABAPENTIN100 MG PO; -GABAPENTIN300 M2 PO; +MITIGARE0.6 MG PO; +ZYLOPRIM100 MG PO
[2023-07-26] MEDS ORDERED: SODIUM CHLORIDE 0.9% 1,000 ML IV ONE (09:05)
[2023-07-26 09:51] LABS: BASO% 0.4 % (0-3); EOS% 0.1 % (0-8); HEMATOCRIT 43.4 % (37.0-47.0); HEMOGLOBIN 13.5 g/dl (12.0-16.0); IMMATURE GRANULOCYTES 0.7 % (0.0-5.0); LYMPH% 23.9 % (15-41); MEAN CORPUSCULAR HGB 25.2 pG CALC (26.0-32.0); MEAN CORPUSCULAR HGB CONC 31.1 g/dL CAL (32.0-36.0); MONO% 16.1 % (2-13); NEUT# 4.01 thou/uL (2.00-7.15); NEUT% 58.8 % (42-76); RED BLOOD COUNT 5.36 mill/uL (4.20-5.60); RED CELL DISTRI WIDTH 14.9 % (11.5-15.5)
[2023-07-26 10:08] LABS: ALBUMIN 4.3 g/dL (3.2-5.0); ALKALINE PHOSPHATASE 95 u/l (38-126); BILIRUBIN, TOTAL 0.3 mg/dL (0.02-1.3); BUN 19 mg/dL (8-23); BUN/CREATININE RATIO 12 (12-20 (CALC)); CHLORIDE 109 mmol/l (95-108); CREATININE 1.6 mg/dL (0.5-1.0); GFR FOR AFR.AMER. 38 ML/MIN (>=60 (CALC)); GFR OTHER RACES 31 ML/MIN (>=60 (CALC)); POTASSIUM 3.5 mmol/l (3.5-5.1); SGOT/AST 54 u/l (9-36); SODIUM 142 mmol/l (137-146)
[2023-07-26 10:14] LABS: ANION GAP 15 (6-22 (CALC)); CARBON DIOXIDE 22 mmol/l (22-30)
[2023-07-26] MEDS ORDERED: ONDANSETRON HCl 4 MG/2 ML SDV IV ONE (11:05)
[2023-07-26] MEDS ORDERED: MORPHINE SULFATE 4 MG/ML VIAL IV ONE (11:05)
[2023-07-26] MEDS ORDERED: OSELTAMIVIR PHOSPHATE 75 MG/TAB CAP PO ONE (11:25)
[2023-07-26] MEDS ORDERED: MAGNESIUM HYDROXIDE 30 ML UDC PO PRN (11:25)
[2023-07-26] MEDS ORDERED: SODIUM CHLORIDE 0.9% 1,000 ML IV PRN (11:25)
[2023-07-26] MEDS ORDERED: ACETAMINOPHEN 325 MG/TAB PO PRN (11:25)
[2023-07-26 12:29] LABS: URINE BLOOD DIPSTICK Negative (NEGATIVE); URINE GLUCOSE - DIPSTICK Negative (NEGATIVE); URINE KETONE Negative (NEGATIVE); URINE LEUK ESTERASE Negative (NEGATIVE); URINE NITRITE - DIPSTICK Negative (Negative); URINE PH 5.5 (4.5-8.0); URINE PROTEIN - DIPSTICK 100 mg/dL (NEG-TRACE); URINE SPECIFIC GRAVITY 1.025; URINE UROBILINOGEN - DIPSTICK 0.2 E.U./dL (0.2)
[2023-07-26 12:31] LABS: URINE COLOR Brown
[2023-07-26 12:38] LABS: URINE SQUAMOUS EPITHELIAL CELL MANY EPI/hpf (0-FEW)
[2023-07-26 12:40] LABS: URINE HYALINE CAST MANY lpf (NONE-RARE)
[2023-07-26 12:41] LABS: URINE BACTERIA MODERATE hpf
[2023-07-26] MEDS ORDERED: KETOROLAC TROMETHAMINE 30 MG/ML SDV IV ONE (17:00)
[2023-07-26] MEDS ORDERED: MORPHINE SULFATE 4 MG/ML VIAL IV SCH (20:15)
[2023-07-26] MEDS ORDERED: ENOXAPARIN SODIUM 40 MG/0.4 ML SYR SC SCH (21:00)
[2023-07-27 00:34] VITALS: BP 144/63
[2023-07-27 04:19] VITALS: BP 155/59
[2023-07-27 06:07] LABS: BASO% 0.5 % (0-3); HEMATOCRIT 39.9 % (37.0-47.0); HEMOGLOBIN 12.4 g/dl (12.0-16.0); IMMATURE GRANULOCYTES 0.2 % (0.0-5.0); LYMPH% 26.6 % (15-41); MEAN CELL VOLUME 81.9 fL CALC (80.0-100.0); MEAN CORPUSCULAR HGB 25.5 pG CALC (26.0-32.0); MEAN CORPUSCULAR HGB CONC 31.1 g/dL CAL (32.0-36.0); NEUT# 3.53 thou/uL (2.00-7.15); NEUT% 59.7 % (42-76); RED BLOOD COUNT 4.87 mill/uL (4.20-5.60); RED CELL DISTRI WIDTH 14.9 % (11.5-15.5)
[2023-07-27 06:22] LABS: ANION GAP 11 (6-22 (CALC)); BUN 15 mg/dL (8-23); BUN/CREATININE RATIO 19 (12-20 (CALC)); CARBON DIOXIDE 25 mmol/l (22-30); CHLORIDE 110 mmol/l (95-108); CREATININE 0.8 mg/dL (0.5-1.0); GFR FOR AFR.AMER. > 60 ML/MIN (>=60 (CALC)); GFR OTHER RACES > 60 ML/MIN (>=60 (CALC)); POTASSIUM 3.7 mmol/l (3.5-5.1); SODIUM 141 mmol/l (137-146)
[2023-07-27 07:03] VITALS: BP 161/77
[2023-07-27] MEDS ORDERED: hydrALAZINE HCL 25 MG/TAB PO SCH (10:00)
[2023-07-27] MEDS ORDERED: GABAPENTIN 100 MG/CAP PO SCH (10:00)
[2023-07-27] MEDS ORDERED: PANTOPRAZOLE SODIUM Sesquihydr 40 MG/TAB PO SCH (10:00)
[2023-07-27] MEDS ORDERED: ALLOPURINOL 100 MG/TAB PO SCH (10:00)
[2023-07-27] MEDS ORDERED: LOSARTAN Potassium 50 MG/TAB PO SCH (10:00)
[2023-07-27] MEDS ORDERED: CARVEDILOL 3.125 MG/TAB PO SCH (10:00)
[2023-07-27] MEDS ORDERED: OSELTAMIVIR PHOSPHATE 75 MG/TAB CAP PO SCH (10:00)
[2023-07-27] MEDS ORDERED: GUAIFENESIN 600 MG/TAB PO SCH (11:00)
[2023-07-27 11:14] VITALS: BP 147/73
[2023-07-27] MEDS ORDERED: oxyCODONE HCL 5 MG/TAB PO PRN (16:00)
[2023-07-27] MEDS ORDERED: LIDOCAINE 4 % PATCH TD SCH (16:00)
[2023-07-27 16:01] VITALS: BP 165/67
[2023-07-27] MEDS ORDERED: METHOCARBAMOL 500 MG/TAB PO SCH (17:00)
[2023-07-27 19:39] VITALS: BP 153/64
[2023-07-28 00:11] VITALS: BP 154/58
[2023-07-28 04:35] VITALS: BP 152/60
[2023-07-28 04:47] LABS: BASO% 0.5 % (0-3); EOS% 3.7 % (0-8); HEMATOCRIT 39.6 % (37.0-47.0); HEMOGLOBIN 12.3 g/dl (12.0-16.0); IMMATURE GRANULOCYTES 0.2 % (0.0-5.0); LYMPH% 35.1 % (15-41); MEAN CELL VOLUME 81.8 fL CALC (80.0-100.0); MEAN CORPUSCULAR HGB 25.4 pG CALC (26.0-32.0); MEAN CORPUSCULAR HGB CONC 31.1 g/dL CAL (32.0-36.0); NEUT# 2.87 thou/uL (2.00-7.15); NEUT% 50.5 % (42-76); RED BLOOD COUNT 4.84 mill/uL (4.20-5.60); RED CELL DISTRI WIDTH 14.8 % (11.5-15.5)
[2023-07-28 05:21] LABS: ANION GAP 11 (6-22 (CALC)); BUN 14 mg/dL (8-23); BUN/CREATININE RATIO 16 (12-20 (CALC)); CARBON DIOXIDE 25 mmol/l (22-30); CHLORIDE 108 mmol/l (95-108); CREATININE 0.9 mg/dL (0.5-1.0); GFR FOR AFR.AMER. > 60 ML/MIN (>=60 (CALC)); GFR OTHER RACES > 60 ML/MIN (>=60 (CALC)); MAGNESIUM 1.9 mg/dL (1.6-2.3); POTASSIUM 3.6 mmol/l (3.5-5.1); SODIUM 141 mmol/l (137-146)
[2023-07-28 07:25] VITALS: BP 174/76
[2023-07-28] MEDS ORDERED: TAM75CAP PO (09:29)
[2023-07-28] MEDS ORDERED: LIDOCAINE PAIN RE4 % TD (09:29)
[2023-07-28 10:33] VITALS: BP 139/62
== END 2023-07-28 13:50 | disposition home health service (06) ==
LOC: ED 09:03 → ED-I 11:07 → ED 11:43 → ED-I 11:44 → MS2 19:50
PROVIDERS: Family Medicine; ADMIT Student in an Organized Health Care Education/Training Program; ATTEND Student in an Organized Health Care Education/Training Program
DX: R55 Syncope and collapse (principal); J11.1 Influenza due to unidentified influenza virus with other respiratory manifestations; N17.9 Acute kidney failure, unspecified; E86.0 Dehydration; S32.020A Wedge compression fracture of second lumbar vertebra, initial encounter for closed fracture; I12.9 Hypertensive chronic kidney disease with stage 1 through stage 4 chronic kidney disease, or unspecified chronic kidney disease; E11.22 Type 2 diabetes mellitus with diabetic chronic kidney disease; N18.30 Chronic kidney disease, stage 3 unspecified; J44.9 Chronic obstructive pulmonary disease, unspecified; E78.00 Pure hypercholesterolemia, unspecified; M10.9 Gout, unspecified; K21.9 Gastro-esophageal reflux disease without esophagitis; E66.9 Obesity, unspecified; W18.30XA Fall on same level, unspecified, initial encounter; Y92.531 Health care provider office as the place of occurrence of the external cause; Z79.84 Long term (current) use of oral hypoglycemic drugs; Z20.822 Contact with and (suspected) exposure to COVID-19
CPT/HCPCS: G0378; J1650

== ENCOUNTER 2024-06-10 00:36 | Emergency (ER) | payer MEDICARE ==
[2024-06-10] VITALS (8 sets, daily range): BP systolic 146–177; BP diastolic 69–80
[~2024-06-10] VITALS: Ht 170.2 cm; Wt 97.0 kg
[~2024-06-10 00:36] MED LIST changes: +ANTIVERT25 M1 PO; +TAM75CAP PO
[2024-06-10] MEDS ORDERED: ONDANSETRON HCl 4 MG/2 ML SDV IV STA (01:03)
[2024-06-10] MEDS ORDERED: MORPHINE SULFATE 4 MG/ML VIAL IV STA (01:03)
[2024-06-10 01:29] LABS: BASO% 0.1 % (0-3); EOS% 2.7 % (0-8); HEMATOCRIT 39.3 % (37.0-47.0); HEMOGLOBIN 12.1 g/dl (12.0-16.0); IMMATURE GRANULOCYTES 0.4 % (0.0-5.0); LYMPH% 31.2 % (15-41); MEAN CELL VOLUME 82.4 fL CALC (80.0-100.0); MEAN CORPUSCULAR HGB 25.4 pG CALC (26.0-32.0); MEAN CORPUSCULAR HGB CONC 30.8 g/dL CAL (32.0-36.0); NEUT# 3.76 thou/uL (2.00-7.15); NEUT% 55.6 % (42-76); RED BLOOD COUNT 4.77 mill/uL (4.20-5.60); RED CELL DISTRI WIDTH 15.2 % (11.5-15.5)
[2024-06-10 01:29] LABS: URINE BILIRUBIN - DIPSTICK Negative (NEGATIVE); URINE BLOOD DIPSTICK Negative (NEGATIVE); URINE GLUCOSE - DIPSTICK Negative (NEGATIVE); URINE KETONE Negative (NEGATIVE); URINE LEUK ESTERASE Negative (NEGATIVE); URINE NITRITE - DIPSTICK Negative (Negative); URINE PROTEIN - DIPSTICK Trace mg/dL (NEG-TRACE); URINE UROBILINOGEN - DIPSTICK 0.2 E.U./dL (0.2)
[2024-06-10 01:30] LABS: URINE COLOR Yellow
[2024-06-10 01:41] LABS: ALBUMIN 4.2 g/dL (3.2-5.0); ALKALINE PHOSPHATASE 112 u/l (38-126); ANION GAP 13 (6-22 (CALC)); BILIRUBIN, TOTAL 0.4 mg/dL (0.02-1.3); BUN 23 mg/dL (8-23); BUN/CREATININE RATIO 21 (12-20 (CALC)); CARBON DIOXIDE 26 mmol/l (22-30); CHLORIDE 107 mmol/l (95-108); CREATININE 1.1 mg/dL (0.5-1.0); ESTIMATED GFR 52 ML/MIN (>=90 (CALC)); LIPASE 55 u/l (23-300); POTASSIUM 3.2 mmol/l (3.5-5.1); SGOT/AST 52 u/l (9-36); SODIUM 142 mmol/l (137-146); TOTAL PROTEIN 7.5 g/dL (6.3-8.2)
[2024-06-10] MEDS ORDERED: POTASSIUM CHLORIDE 20 MEQ/TAB PO ONE (02:45)
[2024-06-10] MEDS ORDERED: SODIUM CHLORIDE 0.9% 1,000 ML IV ONE (02:45)
[2024-06-10] MEDS ORDERED: DULCOLAX5 MG PO (04:06)
== END 2024-06-10 04:23 | disposition home or self-care (01) ==
LOC: ED 00:36
PROVIDERS: Family Medicine
DX: R10.13 Epigastric pain (principal); K59.00 Constipation, unspecified; E87.6 Hypokalemia; I10 Essential (primary) hypertension; E78.5 Hyperlipidemia, unspecified; E11.40 Type 2 diabetes mellitus with diabetic neuropathy, unspecified; K21.9 Gastro-esophageal reflux disease without esophagitis; K44.9 Diaphragmatic hernia without obstruction or gangrene
CPT/HCPCS: J2405; Q9967

== ENCOUNTER 2024-06-17 19:33 | Emergency (ER) | payer MEDICARE ==
[~2024-06-17] VITALS: Ht 170.2 cm; Wt 97.0 kg
[~2024-06-17 19:33] MED LIST changes: +DULCOLAX5 MG PO
[2024-06-17 20:12] LABS: BASO% 0.3 % (0-3); EOS% 2.4 % (0-8); HEMATOCRIT 38.5 % (37.0-47.0); IMMATURE GRANULOCYTES 0.1 % (0.0-5.0); LYMPH% 27.9 % (15-41); MEAN CELL VOLUME 81.9 fL CALC (80.0-100.0); MEAN CORPUSCULAR HGB 25.5 pG CALC (26.0-32.0); MEAN CORPUSCULAR HGB CONC 31.2 g/dL CAL (32.0-36.0); MONO% 8.9 % (2-13); NEUT# 5.33 thou/uL (2.00-7.15); NEUT% 60.4 % (42-76); RED BLOOD COUNT 4.7 mill/uL (4.20-5.60); RED CELL DISTRI WIDTH 14.9 % (11.5-15.5)
[2024-06-17] MEDS ORDERED: BENZONATATE200 MG PO (20:37)
[2024-06-17 20:58] VITALS: BP 149/83
== END 2024-06-17 20:58 | disposition home or self-care (01) ==
LOC: ED 19:33
PROVIDERS: Family Medicine
DX: B34.9 Viral infection, unspecified (principal); E11.9 Type 2 diabetes mellitus without complications; I10 Essential (primary) hypertension; E78.5 Hyperlipidemia, unspecified; J44.9 Chronic obstructive pulmonary disease, unspecified; Z20.822 Contact with and (suspected) exposure to COVID-19